=== PATIENT | male | born 1980 | race Hispanic/Latino ===

== ENCOUNTER 2024-09-24 01:49 | Day surgery (SDC) | payer OTHER, SELFPAY ==
[2024-09-16 13:22] VITALS: BMI 28.5
--- OUTSIDE RECORDS SUMMARY | 2024-09-24 02:57 | XMS_ITS | Continuity of Care Document ---
Author Organization [facility] Address [address] [place] [address] Phone Care Team Providers Care Cloud Solutions Architect Name Role Phone Edin Hair MD Unavailable Unavailable Advance Directives Directive Yes / No Effective Date File Name No Information Encounters Encounter Description Practice Location Reason(s) For Visit Diagnoses Date Provider Providers Copied on Encounter [facility], [address], [place], [place], [id number], tel:[phone] [facility] No Information Reginaldo Jesus. [address] [place] [address], [address], [place], [place], [id number], . tel:[phone] Referring Provider: Edin Hair, [address] [place] [address], [place], [address]. tel:[phone] Family History Family Member Type Diagnosis Age At Onset No Information Payers Payer name Insurance type Covered libertarian ID Authoriza tion(s) [employer] [id number] Social History Type Description Quantity Date Captured Comments Sex Male Smoking Status No Information Chief Complaint And Reason For Visit No Information Reason For Referral Reason For Referral No Information History Of Present Illness Encounter Date Complaint History Of Prese nt Illness No Information Functional Status Date Functional Assessmen t No Information Instructions Date Instruction Additional Infor mation No Information Assessments Type Assessment Date No Information Patient Care Teams Name Effective Dates (start - stop) Status Members No Information
--- OUTSIDE RECORDS SUMMARY | 2024-09-24 02:57 | XMS_ITS | Data Portability ---
Author [facility] Address [address] [place] [address] Care Team Providers Care Bilingual [employer] Teacher Name Role Phone SD BRYANT Primary Care Provider [phone] Assessment Encounter Date Assessment Date Assessment LastModified by Organization Details LastModified Time 08/26/2023 08/26/2023 Obtain old records start him on his blood pressure medication with a recheck of blood pressure in about a week continue on his pantoprazole follow-up with oh otherwise in 4 months [email or web address] Not available 09/07/2023 16:51:45 04/30/2024 04/30/2024 Continue current therapy healthy lifestyle care instructions blood work ordered follow up 6 months colonoscopy because of family history of colon cancer [email or web address] Not available 05/24/2024 23:08:58 Plan of Treatment Reminders Order Date Submit Date Provider Last Modified By Organization Details Last Modified Time Details Appointments ANY 15 2024 10:00A M Sd Bryant MD Not available Not available Not available Lab CBC w/ auto diff 2024 025 [email or web address] [facility], [address] [place] [address], [id number], 09/16/2024 10:15:02 lipid panel, serum 2024 025 [email or web address] [facility], [address] [place] [address], [id number], 09/16/2024 10:15:02 CMP, serum or plasma 2024 025 [email or web address] [facility], [address] [place] [address], [id number], 09/16/2024 10:15:02 magnesium , serum or plasma 2024 025 samuel [facility], [address] [facility], [facility], [place], [address], 09/16/2024 10:15:02 Referral None recorded. Procedures colonosco py screening (PROC) 2024 025 [facility], [address], [id number], [place], [address], 09/21/2024 12:48:58 Surgeries None recorded. Imaging None recorded. Medication Orders None recorded. Patient TargetsNo targets recorded. Patient Instructions Encounter Date Encounter Id Patient Instructions Last Modified By Organization Details Last Modified Time 04/30/2024 [id number] A healthy lifestyle: care instructions [email or web address] Not available 04/30/2024 16:46:48 Reason for Referral None Reported. Problems Name Problem SNOMED Code Status Onset Date Resolution Date Notes Provider Name and Address Organization Details Recorded Time Essential hypertension 76543146 Active 2023 Sd Bryant MD Attn: Marian belen,[address] [place], [address], [facility] 4 16:52:17 Gastroesophage al reflux disease without esophagitis 121428673 Active 2023 Sd Bryant MD Attn: Marian belen,[address] [place], [address], [facility] 4 16:52:18 Problem Notes None recorded. Medical Equipment None Reported. Allergies No known drug allergies Medications Name Sig Start Date Stop Date Status Note LastModified by Organization Details LastModified Time hydrocodone 5 mg-acetamino phen 325 mg tablet TAKE 1 TABLET BY MOUTH EVERY 6 HOURS NEEDED FOR PAIN 08/25 completed Not Available Not Available Not Available acetaminophe n 300 mg-codeine 30 mg tablet TAKE 1 TABLET BY MOUTH EVERY 4 HOURS NEEDED FOR PAIN 04/30 completed Not Available Not Available Not Available cephalexin 500 mg capsule TAKE 1 CAPSULE BY MOUTH FOUR TIMES A DAY 04/30 completed Not Available Not Available Not Available pantoprazole 40 mg tablet,delay ed release TAKE 1 TABLET BY MOUTH EVERY DAY 2024 active Not Available Not Available Not Avai lable lisinopril 10 mg tablet TAKE 1 TABLET BY MOUTH EVERY DAY 2024 active Not Available Not Available Not Avai lable hydroxyzine HCl 25 mg tablet TAKE 1 TABLET BY MOUTH EVERY DAY AT BEDTIME NEEDED 08/25 completed Not Available Not Available Not Available Vitals Date Recorded Body height Body mass index (BMI) Body weight Heart rate Oxygen saturation Oxygen saturation in Arterial blood by Pulse oximetry Systolic blood pressure Diastolic blood pressure Provider Name and Address Organization Details Last Updated DateTime 5 193.04 cm 28.9 kg/m2 406404. 11 g 82 /min 99 % 99 % 126 mm[Hg] 84 mm[Hg] Lakia Espinoza MA [facility] 5 11:16:10 Date Recorded Body height Body mass index (BMI) Body weight Oxygen saturation Oxygen saturation in Arterial blood by Pulse oximetry Heart rate Systolic blood pressure Diastolic blood pressure Systolic blood pressure Diastolic blood pressure Provider Name and Address Organization Details Last Updated DateTime 4 193.04 cm 28.8 kg/m2 642874. 67 g 99 % 99 % 74 /min 150 mm[Hg] 110 mm[Hg] 148 mm[Hg] 108 mm[Hg] Cherie Mayfield MA [facility] 4 14:37:53 Social History Question Answer Notes LastModified by Organizat ion Details LastModified Time Tobacco Smoking Status Never Smoker Cherie Mayfield MA null, [facility] 08/26/2023 14:32:27 Are You Blind Or Do You Have Difficulty Seeing? No Information n ot available 08/26/2023 In The 14 Days Before Symptom Onset, Have You Had Close Contact With A Laboratory-confirm ed COVID-19 While That Case Was Ill? No Information n ot available 04/30/2024 In The 14 Days Before Symptom Onset, Have You Had Close Contact With A Person Who Is Under Investigation For COVID-19 While That Person Was Ill? No Information not available 04/30/2024 Have You Been To An Area Known To Be High Risk For COVID-19? No Information not available 04/30/2024 Are You Deaf Or Do You Have Serious Difficulty Hearing? No Information not available 08/26/2023 What Was The Date Of Your Most Recent Tobacco Screening? 04/30/2024 Information not available 04/30/2024 What Is Your Relationship Status? Information not available 08/26/2023 Do You Use Your Seat Belt Or Car Seat Routinely? Yes Information not available 08/26/2023 Do You Have Smoke And Carbon Monoxide Detectors In Your Home? Yes Information not available 04/30/2024 Sex: Male Functional Status Question Answer Note LastModified by Organizat ion Details LastModified Time Do you use any illicit or recreational drugs? No Information not available 04/30/2024 What is your level of alcohol consumption? None Information not available 08/26/2023 Are you able to care for yourself? Yes Information not available 08/26/2023 Mental Status Question Answer Note LastModified by Organization D etails LastModified Time Do you feel stressed (tense, restless, nervous, or anxious, or unable to sleep at night)? [id number] Information not available 08/26/2023 Family History Relationship Description Onset Age of this Age Resolved Age Notes LastModified by Organization Details LastModified Time Mother Malignant tumor of breast [email or web address] Not available 2023 17:21:43 Mother Malignant tumor of colon [email or web address] Not available 2023 17:21:51 Mother Heart disease [email or web address] Not available 2023 17:22:01 Mother Hypertensive disorder [email or web address] Not available 2023 17:22:07 Father Heart disease [email or web address] Not available 2023 17:22:01 Father Hypertensive disorder [email or web address] Not available 2023 17:22:07 Father Malignant neoplasm of lung [email or web address] Not available 2023 17:23:03 Medical History Condition Response Acid Reflux (GERD) Y High Blood Pressure Y Past Encounters Encounter ID Performer Location Encounter Start Date Encounter Closed Date Diagnosis/Indication Diagnosis SNOMED-CT Code Diagnosis ICD10 Code Diagnosis Note [id number] Sd Bryant MD [facility] [place] [address] [place] [address] 08/26/2023 14:14:54 08/26/2023 15:21:33 Essential hypertension 86366660 I10 Gastroesop hageal reflux disease without esophagitis 104818333 K21.9 [id number] Sd Bryant MD [facility] [place] [address] [place] [address] 04/30/2024 11:03:10 04/30/2024 12:15:59 Body mass index 25-29 - overweight 318746178 Z68.28 Overweight 134285555 E66 .3 Essential hypertension 58103372 I10 Screening for malignant neoplasm of colon 166472329 Z12.11 Gastroesop hageal reflux disease without esophagitis 412765330 K21.9 Health Concerns Section Related Observation LastModified by Organization Detai ls LastModified Time None Recorded Concern Status LastModified by Organization Details LastModified Time None Recorded Advance Directives Directive None Recorded Payers Encounter Date Sequence Insurance Name Policy Number Policy Martinez Covered Member ID Martinez Member ID Guarantor Name 08/26/2023 1 [employer] (POS) [id number] Woo Otero [id number] Woo Otero 04/30/2024 1 [employer] (POS) [id number] Woo Otero [id number] Woo Otero Notes Date Note Type Note Provider Name and Address Organization Details Recorded Time 08/26/2023 text/html 23-year-old follow-up of medical problems blood pressure is up but has been out of his lisinopril and his GERD medicine pantoprazole Sd Bryant MD Attn: [address] [place], [address], [facility] 09/07/2023 16:52:43 04/30/2024 text/html hypertension no headache no dizziness. No nausea no vomiting. Sd Bryant MD Attn: [address] [place], [address], [facility] 05/24/2024 23:09:17
--- OUTSIDE RECORDS SUMMARY | 2024-09-24 02:57 | XMS_ITS | CONTINUITY OF CARE DOCUMENT ---
Author Name mg holliday Address Unknown Organization [facility] Address [address] [place] [address] [address] [place] [address] Phone [phone] Care Team Providers Care V Belt Skiver Name Role Phone Nelson LOPEZ, Liam Unavailable SOFI ALEXANDRA MD Unavailable LEVI BARNES MD Unavailable [phone] INSURANCE PROVIDERS Payer name Policy type / Coverage type [place] red constitution party ID [employer] Commercial insurance company [id number]
--- OUTSIDE RECORDS SUMMARY | 2024-09-24 02:58 | XMS_ITS | Data Portability ---
Author Organization [facility] [employer], Main Office Address [address] [place] [address] Assessment Encounter Date Assessment Date Assessment LastModified by Organization Details LastModified Time 07/02/2022 07/02/2022 Chest pain atypical treadmill stress test GERD ppi conservative measures discussed Insomnia hydroxyzine 25 q.h.s. p.r.n. Emergency room record reviewed Follow-up in 1 month Not available 07/02/2022 10:30:55 08/10/2022 08/10/2022 Gallbladder ultrasound colonoscopy because of family history of colon cancer see me in 4 months [email or web address] Not available 08/12/2022 16:16:14 Plan of Treatment Reminders Order Date Submit Date Provider Last Modified By Organization Details Last Modified Time Details Appointments None recorded. Lab None recorded. Referral None recorded. Procedures colonoscopy procedure (PROC) 2022 023 [email or web address] Ashlie Rubio MD, [address] [facility], [facility] [address], [address], 4 14:22:12 Surgeries None recorded. Imaging US, abdomen, complete 2022 023 [email or web address] [facility] ([facility]), [address] [place], [address], 4 08:51:38 exercise stress test 2022 023 [email or web address] [facility] ([facility]), [address] [place], [address], 3 14:43:18 Medication Orders hydroxyzine HCl 25 mg tablet 2022 023 [email or web address] [facility] #[id number], [address] , [place], [address], 3 15:59:08 Patient TargetsNo targets recorded. Patient InstructionsNo instructions recorded. Reason for Referral None Reported. Results Created Date Observation Date Name Description Value Unit Range Abnormal Flag Note LastModifiedBy Organization Detail LastModifiedTime 07/07/19 23 07/06/2022 exerc ise stres s test No observ ation record ed. [email or web address] [facility] ([facility]) [address] [facility], [place], [address], 08/13/2022 10:19:12 Result Notes None recorded. Problems Name Problem SNOMED Code Status Onset Date Resolution Date Notes Provider Name and Address Organization Details Recorded Time Infectious diarrheal disease 82503784 Active Not Available [facility] 3 00:11:59 Insomnia 741138640 Active Not Available [facility] 3 00:11:59 Gastroesophag eal reflux disease 112176422 Active Not Available [facility] 3 00:11:59 Morbid obesity 279355618 Active Not Available [facility] 3 00:11:59 Dog bite of hand 118962775 Active Not Available [facility] 3 00:11:59 Anxiety 19412337 Active Not Available [facility] 3 00:11:59 Pain of hip region 47469307 Active Not Available [facility] 3 00:11:59 Essential hypertension 43736832 Active Not Available [facility] 3 00:11:59 Chest pain 68978457 Active 2022 Not Available [facility] 3 00:11:59 Abdominal pain 89126388 Active 2022 Not Available [facility] 3 00:11:59 Problem Notes None recorded. Procedures Surgical History Date Name Laterality Status Provider Name and Address Organization Details Recorded Time Gastric Bypass completed Not Available [facility] 06/20/2022 14:54:42 Imaging Results None recorded. Procedure Notes None recorded. Medical Equipment None Reported. Allergies No known drug allergies Medications Name Sig Start Date Stop Date Status Note LastModified by Organization Details LastModified Time buspirone 5 mg tablet Take 1 tablet twice a day by oral route. 04/30 completed Not Available Not Available Not Available trazodone 50 mg tablet Take 1 tablet every day by oral route at bedtime. active Not Available Not Available No t Available alprazolam 1 mg tablet TAKE 1 TABLET TWICE A DAY NEEDED active Not Available Not Available No t Available hydrocodone 5 mg-acetamin ophen 325 mg tablet TAKE 1 TABLET EVERY 4 HOURS NEEDED FOR PAIN 01/05 completed Not Available Not Available Not Available bacitracin 500 unit/gram eye ointment 09/26 completed Not Available Not Available Not Available sucralfate 1 gram tablet 05/24 completed Not Available Not Available Not Available naltrexone 50 mg tablet TK 1 T PO QD 01/05 completed Not Available Not Available Not Available ondansetron HCl 4 mg tablet TAKE 2 TABLETS BY MOUTH THREE TIMES DAILY 01/06 completed Not Available Not Available Not Available Medrol (Jermaine) 4 mg tablets in a dose pack Take as directed 11/11 completed Not Available Not Available Not Available oxycodone 5 mg/5 mL oral solution 05/24 completed Not Available Not Available Not Available metronidazo le 500 mg tablet 05/24 completed Not Available Not Available Not Available acetaminoph en 300 mg-codeine 30 mg tablet TAKE 1 TABLET BY MOUTH EVERY 4 HOURS NEEDED FOR PAIN 01/06 completed Not Available Not Available Not Available ciprofloxac in 500 mg tablet 05/24 completed Not Available Not Available Not Available tramadol 50 mg tablet active Not Available Not Available No t Available oxycodone-a cetaminophe n 5 mg-325 mg tablet 09/26 completed Not Available Not Available Not Available amoxicillin 875 mg tablet 01/25 completed Not Available Not Available Not Available prednisolon e acetate 1 % eye drops,suspe nsion 09/26 completed Not Available Not Available Not Available chlordiazep oxide 25 mg capsule TK 1 C PO 3 TIMES A DAY NEEDED 01/05 completed Not Available Not Available Not Available tamsulosin 0.4 mg capsule 01/06 completed Not Available Not Available Not Available trazodone 100 mg tablet TAKE ONE TABLET DAILY AT BEDTIME 01/05 completed Not Available Not Available Not Available cephalexin 500 mg capsule TAKE 1 CAPSULE FOUR TIMES A DAY UNTIL ALL TAKEN 01/05 completed Not Available Not Available Not Available paroxetine 20 mg tablet active Not Available Not Available Not Available pantoprazol e 40 mg tablet,omi yed release TAKE 1 TABLET BY MOUTH EVERY DAY 2023 active Not Available Not Available Not Avai lable buspirone 10 mg tablet Take 1 tablet twice a day by oral route. 07/30 completed Not Available Not Available Not Available lisinopril 10 mg tablet TAKE 1 TABLET BY MOUTH EVERY DAY active Not Available Not Available No t Available ursodiol 300 mg capsule 08/02 completed Not Available Not Available Not Available nicotine 21 mg/24 hr daily transdermal patch 08/02 completed Not Available Not Available Not Available hydroxyzine HCl 25 mg tablet TAKE 1 TABLET BY MOUTH EVERY DAY AT BEDTIME NEEDED active Not Available Not Available No t Available lorazepam 1 mg tablet Take 1 tablet 3 times a day by oral route. active Not Available Not Available No t Available propranolol 20 mg tablet 08/02 completed Not Available Not Available Not Available fluoxetine 20 mg capsule Take 1 capsule every day by oral route. 07/30 completed Not Available Not Available Not Available amoxicillin 875 mg-potassiu m clavulanate 125 mg tablet TAKE 1 TABLET BY MOUTH TWICE A DAY 03/02 completed Not Available Not Available Not Available escitalopra m 10 mg tablet TK 1 T PO QD 01/05 completed Not Available Not Available Not Available Vigamox 0.5 % eye drops 09/26 completed Not Available Not Available Not Available metoprolol tartrate 25 mg tablet Take 1 tablet twice a day by oral route. 04/30 completed Not Available Not Available Not Available Nexium 08/02 completed Not Available Not Available Not Available ID NOW COVID-19 Test Kit TEST DIRECTED 01/06 completed Not Available Not Available Not Available Vitals Date Recorded Body weight Body mass index (BMI) Body height Body temperature Heart rate Systolic blood pressure Diastolic blood pressure Provider Name and Address Organization Details Last Updated DateTime 3 263238. 54 g 29.7 kg/m2 193.04 cm 98.8 [degF] 68 /min 138 mm[Hg] 88 mm[Hg] ISABEL Langley [facility] [employer] [facility] 3 09:51:24 Date Recorded Body height Body weight Body temperature Heart rate Oxygen saturation Oxygen saturation in Arterial blood by Pulse oximetry Systolic blood pressure Diastolic blood pressure Provider Name and Address Organization Details Last Updated DateTime 3 193.04 cm 611639. 32 g 98.1 [degF] 99 /min 87 % 87 % 126 mm[Hg] 84 mm[Hg] Laine Tripp RN [facility] [employer] [facility] 3 11:30:27 Date Recorded Body mass index (BMI) Body height Heart rate Body temperature Body weight Systolic blood pressure Diastolic blood pressure Provider Name and Address Organization Details Last Updated DateTime 1 31.3 kg/m2 193.04 cm 78 /min 97.6 [degF] 748965. 24 g 122 mm[Hg] 70 mm[Hg] Not Available [facility] 3 14:55:20 Date Recorded Body mass index (BMI) Body height Heart rate Body temperature Body weight Systolic blood pressure Diastolic blood pressure Provider Name and Address Organization Details Last Updated DateTime 1 30.8 kg/m2 193.04 cm 72 /min 97.9 [degF] 184751. 87 g 126 mm[Hg] 80 mm[Hg] Not Available [facility] 3 14:55:20 Date Recorded Heart rate Body temperature Body weight Systolic blood pressure Diastolic blood pressure Provider Name and Address Organization Details Last Updated DateTime 2 73 /min 99.2 [degF] 593868. 83 g 138 mm[Hg] 86 mm[Hg] Not Available [facility] 3 14:55:20 Social History Question Answer Notes LastModified by Organization Details LastModified Time Tobacco Smoking Status Never Smoker Not Available [facility] 06/20/2022 14:54:30 Do You Have An Advance Directive? No MIGRATION.300 [id number] Information not available 06/20/2022 Do You Wear A Helmet When Biking? No MIGRATION.[id number] Information not available 06/20/2022 Is Blood Transfusion Acceptable In An Emergency? Yes [email or web address] Information not available 07/02/2022 What Is Your Level Of Caffeine Consumption? Moderate MIGRATION.0301 [id number] Information not available 06/20/2022 How Much Tobacco Do You Chew? None MIGRATION.0301 [id number] Information not available 06/20/2022 In The 14 Days Before Symptom Onset, Have You Had Close Contact With A Laboratory-confi rmed COVID-19 While That Case Was Ill? No MIGRATION.0301 [id number] Information not available 06/20/2022 In The 14 Days Before Symptom Onset, Have You Had Close Contact With A Person Who Is Under Investigation For COVID-19 While That Person Was Ill? No MIGRATION.0301 [id number] Information not available 06/20/2022 What Type Of Diet Are You Following? REGULAR MIGRATION.0301 [id number] Information not available 06/20/2022 What Is The Highest Grade Or Level Of School You Have Completed Or The Highest Degree You Have Received? [id number] MIGRATION.030 208472 Information not available 06/20/2022 Have There Been Any Changes To Your Family Or Social Situation? No MIGRATION.0301 [id number] Information not available 06/20/2022 What Is The Fluoride Status Of Your Home? Unknown MIGRATION.0301 [id number] Information not available 06/20/2022 Are There Any Guns Present In Your Home? Yes MIGRATION.0301 906641 Information not available 06/20/2022 Do You Use Insect Repellent Routinely? No MIGRATION.0301 [id number] Information not available 06/20/2022 Where Do You Live? SingleLevelHouse With Basement MIGRATION.0301 [id number] Information not available 06/20/2022 Do You Have A Medical Power Of Sweeper [employer]? No MIGRATION.0301 [id number] Information not available 06/20/2022 What Was The Date Of Your Most Recent Tobacco Screening? 07/02/2022 [email or web address] Information not available 07/02/2022 Have You Ever Been Counseled For Unhealthy Alcohol Use? No MIGRATION.0301 417159 Information not available 06/20/2022 Do You Have Any Pets? Yes MIGRATION.0301 [id number] Information not available 06/20/2022 What Is Your Relationship Status? MIGRATION.0301 808891 Information not available 06/20/2022 Do You Use Your Seat Belt Or Car Seat Routinely? Yes MIGRATION.0301 083148 Information not available 06/20/2022 Do You Have Smoke And Carbon Monoxide Detectors In Your Home? Yes MIGRATION.0301 165046 Information not available 06/20/2022 Are You Passively Exposed To Smoke? No MIGRATION.0301 502370 Information not available 06/20/2022 Are There Any Smokers In Your House? 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 Yes MIGRATION.0301 146026 Information not available 06/20/2022 Has Tobacco Cessation Counseling Been Provided? No MIGRATION.0301 849172 Information not available 06/20/2022 Have You Recently Traveled Abroad? No MIGRATION.0301 324246 Information not available 06/20/2022 Do You Have Any Dietary Restrictions? No MIGRATION.0301 437418 Information not available 06/20/2022 Sex: Male Functional Status Question Answer Note LastModified by [employer] Details LastModified Time Do you use any illicit or recreational drugs? No MIGRATION.425247 1605 Information not available 06/20/2022 Do you or have you ever used any other forms of tobacco or nicotine? Yes MIGRATION.235431 8917 Information not available 06/20/2022 What is your level of alcohol consumption? Occasional MIGRATION.995413 1759 Information not available 06/20/2022 Do you or have you ever used smokeless tobacco? Former smokeless tobacco user MIGRATION.879008 3733 Information not available 06/20/2022 What is your occupation? [employer] MIGRATION.457949 5299 Information not available 06/20/2022 Do you or have you ever used e-cigarettes or vape? Never used electronic cigarettes MIGRATION.387059 4847 Information not available 06/20/2022 What is your exercise level? Moderate MIGRATION.829283 6122 Information not available 06/20/2022 Mental Status Question Answer Note LastModified by [employer] Details LastModified Time Do you feel stressed (tense, restless, nervous, or anxious, or unable to sleep at night)? [id number] MIGRATION.[id number] Information not available 06/20/2022 Family History Relationship Description Onset Age of this Age Resolved Age Notes LastModified by Organization Details LastModified Time Father Malignant neoplasm of lung MIGRATION.260 [id number] Not available 06/20/2022 14:54:43 Mother Cerebrovascu lar accident MIGRATION.440 [id number] Not available 06/20/2022 14:54:43 Maternal Grandfather Malignant tumor of colon MIGRATION.548 [id number] Not available 06/20/2022 14:54:43 Maternal Uncle Malignant tumor of colon MIGRATION.124 [id number] Not available 06/20/2022 14:54:43 Medical History Condition Response NERVE DISEASE N BLINDNESS N RHEUMATIC FEVER N KIDNEY STONES N BLADDER PROBLEMS N MRSA N OTHER # 1 N POLIO N LUNG DISEASE/DISORDER N HISTORY OF DRUG ABUSE N RADIATION / CHEMOTHERAPY N COPD N Other # 2 N BLOOD DISEASES N EAR OR HEARING PROBLEMS N MUMPS N SHINGLES N DEPRESSION (INCLUDING POST ) N BOWEL PROBLEMS N STROKE/TIA N ULCERS Y BENIGN PROSTATIC HYPERPLASIA N MEASLES N HYPOTENSION N MYOCARDIAL INFARCTION N OBESITY Y GERD/NAUSEA Y ANEURYSM N URINARY/BLADDER/KIDNEY PROBLEMS N CORONARY ARTERY DISEASE (CAD) N ADDICTION CONCERNS N Impotence N ENDOMETRIOSIS N USE OF BLOOD THINNERS N SKIN PROBLEMS N GASTROINTESTINAL DISORDER N PERIPHERAL VASCULAR DISEASE N MUSCLE,JOINT OR BONE PROBLEMS N GASTROINTESTINAL BLEEDING N BLOOD CLOTS N ASTHMA N CATARACTS N ERECTILE DYSFUNCTION N VARICOSITIES N GI PROBLEMS N Low Testosterone N INFERTILITY N AIDS/HIV N CHEMOTHERAPY / RADIATION N LIVER DISEASE N MALE HYPOGONADISM N HYPERTENSION Y Deficiency N TOURETTE'S N ANXIETY DISORDER Y BLOOD TRANSFUSION N ANEMIA/BLOOD DISORDER N CHRONIC EAR INFECTIONS N BRONCHITIS N TUBERCULOSIS N GLAUCOMA N FOOT PROBLEM N DIVERTICULITIS N SLEEP APNEA N CHICKENPOX N INFECTIOUS DISEASE N PROSTATE N HEART ARRHYTHMIA N INSOMNIA Y HIGH CHOLESTEROL / HYPERLIPIDEMIA N EYE PROBLEMS N HYPERTHYROIDISM N EDEMA N CHRONIC PAIN SYNDROME N HYPOTHYROIDISM N CAROTID BLOCKAGE N CONSTIPATION N BACK / NECK PROBLEMS N HAVE YOU BEEN HOSPITALIZED OR SEEN IN [facility] IN THE PAST YEAR ? N ATHEROSCLEROSIS N BREAST PROBLEMS N DIALYSIS N ECZEMA N OSTEOPOROSIS N ARTHRITIS N APPENDICITIS N DIABETES, TYPE N BAD TEETH N ENT N HEARTBURN / REFLUX N AUTISM SPECTRUM DISORDER (ASD) N HEPATITIS / LIVER DISEASE N GOUT N SLEEP DISORDER N ALZHEIMER'S DISEASE N Brain Problems N DEMENTIA N HERPES N SEIZURES/EPILEPSY N HEADACHES/MIGRAINES N VASCULAR DISEASE N PACEMAKER N Blood Disorder N DIZZINESS N HEART DISEASE/HEART PROBLEMS N KIDNEY DISEASE N MULTIPLE SCLEROSIS N CANCER: SPECIFY N CARDIAC ARRHYTHMIA N ATRIAL FIBRILLATION N Gall Stones N PULMONARY EMBOLISM N AUTOIMMUNE DISEASE N Immunizations Vaccine Type Date Status Note Provider Nam e and Address Organization Details Recorded Time Tdap 07/13/2014 completed Not Available [facility] 09/19/2022 00:11:59 Tdap 07/14/2014 completed Not Available [facility] 09/19/2022 00:11:59 Past Encounters Encounter ID Performer Location Encounter Start Date Encounter Closed Date Diagnosis/Indication Diagnosis SNOMED-CT Code Diagnosis ICD10 Code Diagnosis Note [id number] Sd Bryant MD [facility] Internal Med [facility] [address] [place] [address] 01/06/2021 00:00:00 01/06/2021 22:30:07 [id number] Sd Bryant MD [facility] Internal Med [address] [address] 01/25/2021 00:00:00 02/12/2021 18:14:07 [id number] Sd Bryant MD [facility] Internal Med [address] [address] 03/02/2022 00:00:00 03/03/2022 20:54:23 [id number] Sd Bryant MD [facility] Internal Med [address] [address] 07/02/2022 09:44:30 07/02/2022 10:21:24 Chest pain 81462717 R07.9 Insomnia 141927366 G47.0 0 [id number] Sd Bryant MD [facility] Internal Med [address] [address] 08/10/2022 11:23:17 08/10/2022 12:06:46 Abdominal pain 14009112 R10.9 Family his tory of cancer of colon 746654611 Z80.0 Health Concerns Section Related Observation LastModified by Organization Detai ls LastModified Time None Recorded Concern Status LastModified by Organization Details LastModified Time None Recorded Advance Directives Directive N: Payers Encounter Date Sequence Insurance Name Policy Number Policy Martinez Covered Member ID Martinez Member ID Guarantor Name 07/02/2022 1 [employer] (POS) [id number] Woo Otero [id number] Jeremie Otero 08/10/2022 1 [employer] (POS) [id number] Woo Otero [id number] Jeremie Otero Notes Date Note Type Note Provider Name and Address Organization Details Recorded Time 07/02/2022 text/html Will cup in the middle of night with some chest pain and some heartburn went to the emergency room EKG and blood work was unremarkable started on proton pump inhibitor and seems to be doing a little bit betterHe has been having some problems with insomnia off and on now for couple months Sd Bryant MD [address], [place], [address], [employer] [facility] [employer] 07/02/2022 10:31:12 08/10/2022 text/html Feeling better s tress test negative when 13 MetsUpper endoscopy nothing acuteGallbladder ultrasound recommended Sd rByant MD [address], [place], [address], [employer] 08/12/2022 16:16:30
[2024-09-24 07:42] VITALS: BP 151/96; PULSE 63; RESP 18; TEMP 36.2; O2SAT 100; BMI 28.8
[2024-09-24] MEDS: LACTATED RINGERS 1,000 ML 150 ML IV CONT (07:49)
--- NOTE | 2024-09-24 07:57 | SUR.PREOP ---
Patient chewing gum upon arrival to pre op. Dr. Barr notified and verbalizes okay with proceeding with scheduled time.
--- NOTE | 2024-09-24 08:04 | WPDANESEPPF ---
Anes - Initial Pre Proc Eval Procedure: Operation Date: 09/24/24 08:30 Proposed Procedures p Screening Colonoscopy - Paras Layton MD Date/Time: 09/24/24 08:04 Surgeon: Paras Layton MD Pre Op Diagnosis: malignant neoplasm of colon Patient Data Age: 44 Gender: M Height: 1.93 m Weight: 107.2 kg Last Vital Signs Temp 97.1 F L 09/24/24 07:42 Pulse 63 09/24/24 07:42 Resp 18 09/24/24 07:42 BP 151/96 H 09/24/24 07:42 Pulse Ox 100 09/24/24 07:42 O2 Del Method Room Air 09/24/24 07:42 Allergies Allergy/AdvReac Type Severity Reaction Status Date / Time No Known Allergies Allergy Mild Verified 09/24/24 07:40 Home Medications ?Medication ?Instructions ?Recorded ?Confirmed ?Type lisinopril 10 mg tablet 10 mg PO DAILY 09/16/24 09/24/24 History pantoprazole 40 mg tablet,delayed 40 mg PO DAILY 09/16/24 09/24/24 History release Patient hx anesthesia problems: none Family hx anesthesia problems: none Results Review: All pre-operative results and documents have been reviewed as part of the pre-operative evaluation. [facility] Past Medical History Medical History Hypertension Surgical History Surgical History History of gastric bypass Family History Family History Other Hypertension Social History Social History Alcohol intake: current Substance use: never Living arrangements: with family Spiritual care concerns: No Anes - Eval Final PreProcedure Day of Procedure 09/24/24 08:04 Patient weight: overweight Lungs: normal air movement Airway: Mallampati scale class II Neurological: alert and oriented Last oral intake: >/= 8 hours ASA classification: II Emergent: no Anesthetic plan: proceed Anesthesia type and monitoring: general GIVS and standard monitoring Results Review: All pre-operative results and documents have been reviewed as part of the pre-operative evaluation. HTN, currently uses chewing tobacco only. Informed Consent: The patient's anesthetic plan and its attendant risks and benefits were discussed with the patient/family/POA. Questions were solicited and answers provided to the satisfaction of the patient/family/POA.
--- NOTE | 2024-09-24 08:28 | PM.IMHP ---
H&P: HPI History of Present Illness Date/Time: 09/24/24 08:28 Chief Complaint: Family history of colorectal cancer Narrative: This patient has family history of colorectal cancer. his grandfather and a paternal aunt had colorectal cancer at early ages. He is here for screening. Review of Systems Review of Systems: All systems reviewed & are unremarkable except as noted in HPI and below PMFSH Past Medical History Medical History Hypertension Surgical History Surgical History History of gastric bypass Family History Family History Other Hypertension Social History Social History Alcohol intake: current Substance use: never Living arrangements: with family Spiritual care concerns: No Meds Home Medications and Allergies Home Medications ?Medication ?Instructions ?Recorded ?Confirmed ?Type lisinopril 10 mg tablet 10 mg PO DAILY 09/16/24 09/24/24 History pantoprazole 40 mg tablet,delayed 40 mg PO DAILY 09/16/24 09/24/24 History release Allergies Allergy/AdvReac Type Severity Reaction Status Date / Time No Known Allergies Allergy Mild Verified 09/24/24 07:40 Vital Signs Vital Signs - 24 hr 09/24/24 07:42 Temperature 97.1 F L Pulse Rate 63 Respiratory Rate 18 Blood Pressure 151/96 H Pulse Oximetry 100 Oxygen Delivery Room Air Exam Const: General: cooperative and healthy appearing Resp: Effort & Inspection: normal respiratory effort and able to speak in complete sentences Auscultation: clear to auscultation bilaterally Cardio: Rate: regular rate Rhythm: regular rhythm GI: Inspection: normal to inspection GI Palp: No No hepatosplenomegaly present Auscultation: normal bowel sounds Rectal Exam: deferred Skin: General skin exam: normal color Psych: Appearance: grossly normal Mental Status: mental status grossly normal Assessment and Plan Assessment and plan (1) Family history of colorectal cancer: Code(s): Z80.0 - Family history of malignant neoplasm of digestive organs Status: Acute Assessment and Plan: The patient is deemed a good candidate for the procedure. Consent signed. Will proceed.
[2024-09-24 08:50] VITALS: BP 91/48; PULSE 57; RESP 15; O2SAT 97
[2024-09-24 09:00] VITALS: BP 97/45; PULSE 60; RESP 15; O2SAT 99
[2024-09-24 09:10] VITALS: BP 129/80; PULSE 65; RESP 16; O2SAT 99
== END 2024-09-24 09:26 | disposition home or self-care (01) ==
PROVIDERS: PCP Internal Medicine; Referring Provider Internal Medicine; Visit Provider Internal Medicine Gastroenterology
PROC: 0DJD8ZZ Inspection of Lower Intestinal Tract, Via Natural or Artificial Opening Endoscopic (ICD-10-PCS; CPT 45378; principal; 2024-09-24 08:30)
DX: Z12.11 Encounter for screening for malignant neoplasm of colon (principal); K57.30 Diverticulosis of large intestine without perforation or abscess without bleeding; I10 Essential (primary) hypertension; Z98.84 Bariatric surgery status; Z80.0 Family history of malignant neoplasm of digestive organs
CPT/HCPCS: 45378; J2704; J7120